=== PATIENT | female | born 1975 | race Caucasian/White ===

== ENCOUNTER 2018-11-15 11:33 | Emergency (ER) | payer OTHER ==
--- NOTE | 2018-11-15 11:32 | EDPHY ---
H & P Time Seen by Provider: 11/15/18 11:33 Constitutional: Initial Vital Signs Temperature (C) 36.4 C 11/15/18 11:33 Heart Rate 63 11/15/18 11:33 Respiratory Rate 20 11/15/18 11:33 Blood Pressure 106/66 11/15/18 11:33 O2 Sat (%) 100 11/15/18 11:33 O2 Delivery Mode Room Air Allergies/Adverse Reactions: No Known Allergies Allergy (Unverified 11/15/18 12:02) Home Medications: Medication Instructions Recorded NK [No Known Home Meds] 11/15/18 Medical Decision Making - Diagnostics Imaging Results: Imaging Impressions Head CT 11/15/18 11:35 Impression: Normal noncontrast CT of the brain. Results called to Dr. Tyrese Villarreal at 11:50 AM at the time of the interpretation. Brain MRI 11/15/18 12:01 Impression: Minimal left frontal and parietal white matter disease; otherwise unremarkable MRI of the brain without contrast. Results called to Dr. Villarreal at 1:00 PM. Imaging: Discussed imaging studies w/ manager call Radiologist, I viewed and interpreted images myself ED Course/Re-evaluation: CHIEF COMPLAINT: Stroke alert HISTORY OF PRESENT ILLNESS: The patient is a 43 y/o female with a history of migraines arriving emergently via EMS as a stroke alert today. The patient reports that starting yesterday she developed neurological symptoms. Today at 09:00, 2.5 hours ago, she was driving and started to feel dizzy and lightheaded. She called EMS due to these symptoms. The patient initially had a negative Rosie Stroke Scale. However , she developed slurred speech, lost her peripheral vision, and had some drooping on her right side. She also states that her left hand and leg are numb. No fever, headache, body aches, lightheadedness, chest pain, heart palpitations, shortness of breath, cough, abdominal pain, urinary or bowel complaints REVIEW OF SYSTEMS: A comprehensive 10 system review of systems is otherwise negative aside from elements mentioned in the history of present illness and medical decision making. PHYSICAL EXAM: HR, BP, O2 Sat, RR. Temp noted General Appearance: Alert, well hydrated, appropriate, and non-toxic appearing. Head: Atraumatic without scalp tenderness or obvious injury Eyes: Pupils equal, round, reactive to light and accommodation, EOMI, no trauma , no injection. Ears: Clear bilaterally, no perforation, normal landmarks Nose: Atraumatic, no rhinorrhea, clear. Throat: There is no erythema or exudates, no lesions, normal tonsils, mucus membranes moist. Neck: Supple, 2+ carotid upstroke, nontender, no lymphadenopathy. Respiratory: No retractions, no distress, no wheezes, and no accessory muscle use. Lungs are clear to auscultation bilaterally. Cardiovascular: Regular rate and rhythm, no murmurs, rubs, or gallops. Bilateral carotid, radial, dorsalis pedis, and posterior tibial pulses intact. Good capillary refill all extremities. Gastrointestinal: Abdomen is soft, nontender, non-distended, no masses, no rebound, no guarding, no peritoneal signs. Musculoskeletal: Normal active ROM of all extremities, atraumatic. Neurological: Patient is able to move all extremities, but states that she feels weak on her left side. She also has some slurred speech, but is saying the words that she wants and understand me. Alert and interactive. The patient has normal DTRs and non-focal cranial nerves, motor, sensory, and cerebellar exam. Skin: No rashes, good turgor, no nodules on palpation. Past medical history: Migraines Past surgical history: Hysterectomy Family history: Denies Social history: Lives in [place], single, employed DIAGNOSTICS/PROCEDURES/CRITICAL CARE TIME: Head CT: No acute findings. Brain MRI: No acute findings. DIFFERENTIAL DIAGNOSIS: The differential diagnosis for the patient's altered mental status included but was not limited to atypical migraine, hypoglycemia, infectious process, electrolyte abnormality, head injury, neurologic process, anemia, cardiac process, and intoxicants. MEDICAL DECISION MAKIN: I met EMS upon arrival. The patient is a 43 y/o female with a history of migraines arriving emergently via EMS as a stroke alert today. The patient reports that starting yesterday she developed neurological symptoms. Today at 09:00, 2.5 hours ago, she was driving and started to feel dizzy and lightheaded. She then developed slurred speech, lost her peripheral vision, and had some drooping on her right side. On exam she is able to move all extremities, but states that she feels weak on her left side. She also has some slurred speech, but is saying the words that she wants and understand me. Head CT ordered. Patient will go directly to CT. 1155: I spoke with Dr. Whitehead, radiologist, regarding patient's head CT. There are no acute findings. 1159: Reassessed patient. [facility] is assessing the patient via the stroke robot. The neurologist and I agree that the patient is most likely having an atypical migraine. She is not in the TPA window as her symptoms started yesterday. Brain MRI ordered and cocktail migraine administered. 1305: I spoke with Dr. Whitehead, radiologist, regarding patient's brain MRI. There are no acute findings. 1310: Reassessed patient and discussed imaging findings. I have advised her to follow up with a neurologist. Return precautions provided; patient is comfortable with this plan. - Data Points Laboratory Results: Laboratory Results 11/15/18 11:40 11/15/18 11:40 11/15/18 11/15/18 11/15/18 11:40 11:40 11:40 WBC 7.73 10^3/uL 10^3/uL (3.80-9.50) RBC 4.56 10^6/uL 10^6/uL (4.18-5.33) Hgb 15.1 g/dL g/dL (12.6-16.3) POC Hgb Hct 42.3 % % (38.0-47.0) POC Hct MCV 92.8 fL fL (81.5-99.8) MCH 33.1 pg pg (27.9-34.1) MCHC 35.7 g/dL g/dL (32.4-36.7) RDW 12.6 % % (11.5-15.2) Plt Count 280 10^3/uL 10^3/uL (150-400) MPV 9.9 fL fL (8.7-11.7) Neut % (Auto) 53.7 % % (39.3-74.2) Lymph % (Auto) 40.4 % % (15.0-45.0) Esmeralda % (Auto) 4.7 % % (4.5-13.0) Eos % (Auto) 0.8 % % (0.6-7.6) Baso % (Auto) 0.1 % L % (0.3-1.7) Nucleat RBC Rel Count 0.0 % % (0.0-0.2) Absolute Neuts (auto) 4.16 10^3/uL 10^3/uL (1.70-6.50) Absolute Lymphs (auto) 3.12 10^3/uL H 10^3/uL (1.00-3.00) Absolute Monos (auto) 0.36 10^3/uL 10^3/uL (0.30-0.80) Absolute Eos (auto) 0.06 10^3/uL 10^3/uL (0.03-0.40) Absolute Basos (auto) 0.01 10^3/uL L 10^3/uL (0.02-0.10) Absolute Nucleated RBC 0.00 10^3/uL 10^3/uL (0-0.01) Immature Gran % 0.3 % % (0.0-1.1) Immature Gran # 0.02 10^3/uL 10^3/uL (0.00-0.10) PT 13.0 SEC SEC (12.0-15.0) INR 1.02 (0.83-1.16) APTT 30.6 SEC SEC (23.0-38.0) POC Sodium Sodium 139 mEq/L mEq/L (135-145) POC Potassium Potassium 4.1 mEq/L mEq/L (3.5-5.2) POC Chloride Chloride 104 mEq/L mEq/L (97-110) Carbon Dioxide 22 mEq/l mEq/l (22-31) POC Total CO2 Anion Gap 13 mEq/L mEq/L (6-14) POC BUN BUN 6 mg/dL L mg/dL (7-23) Creatinine 0.6 mg/dL mg/dL (0.6-1.0) POC Creatinine Estimated GFR > 60 Glucose 102 mg/dL H mg/dL (70-100) POC Glucose Calcium 9.9 mg/dL mg/dL (8.5-10.4) 11/15/18 11:38 WBC RBC Hgb POC Hgb 15.0 gm/dL gm/dL (12.6-16.3) Hct POC Hct 44 % % (38-47) MCV MCH MCHC RDW Plt Count MPV Neut % (Auto) Lymph % (Auto) Esmeralda % (Auto) Eos % (Auto) Baso % (Auto) Nucleat RBC Rel Count Absolute Neuts (auto) Absolute Lymphs (auto) Absolute Monos (auto) Absolute Eos (auto) Absolute Basos (auto) Absolute Nucleated RBC Immature Gran % Immature Gran # PT INR APTT POC Sodium 142 mEq/L mEq/L (135-145) Sodium POC Potassium 3.7 mEq/L mEq/L (3.3-5.0) Potassium POC Chloride 103 mEq/L mEq/L (97-110) Chloride Carbon Dioxide POC Total CO2 22 mEq/L mEq/L (22-31) Anion Gap POC BUN 5 mg/dL L mg/dL (7-23) BUN Creatinine POC Creatinine 0.6 mg/dL mg/dL (0.6-1.0) Estimated GFR Glucose POC Glucose 109 mg/dL H mg/dL (70-100) Calcium Medications Given: Discontinued Medications Diphenhydramine HCl (Benadryl Injection) 25 mg IVP EDNOW ONE Stop: 11/15/18 12:03 Last Admin: 11/15/18 12:10 Dose: 25 mg Ketorolac Tromethamine (Toradol) 30 mg IVP EDNOW ONE Stop: 11/15/18 12:03 Last Admin: 11/15/18 12:13 Dose: 30 mg Methylprednisolone Sodium Succinate (Solu-Medrol) 125 mg IVP EDNOW ONE Stop: 11/15/18 12:03 Last Admin: 11/15/18 12:13 Dose: 125 mg Metoclopramide HCl (Reglan Injection) 10 mg IVP EDNOW ONE Stop: 11/15/18 12:03 Last Admin: 11/15/18 12:12 Dose: 10 mg Point of Care Test Results: Chemistry 11/15/18 11:38 POC Sodium 142 mEq/L mEq/L (135-145) POC Potassium 3.7 mEq/L mEq/L (3.3-5.0) POC Chloride 103 mEq/L mEq/L (97-110) POC Total CO2 22 mEq/L mEq/L (22-31) POC BUN 5 mg/dL L mg/dL (7-23) POC Creatinine 0.6 mg/dL mg/dL (0.6-1.0) POC Glucose 109 mg/dL H mg/dL (70-100) ISTAT H&H 04/06/19 11:38 POC Hgb 15.0 gm/dL gm/dL (12.6-16.3) POC Hct 44 % % (38-47) Departure - Departure Disposition: Home, Routine, Self-Care Clinical Impression: Migraine Qualifiers: Migraine type: other Status migrainosus presence: without status migrainosus Intractability: intractable Qualified Code(s): G43.819 - Other migraine, intractable, without status migrainosus Condition: Good Instructions: Migraine Headache (ED) Additional Instructions: 1. Follow-up with your primary care physician or neurologist within 72 hours. 2. Return to the emergency department immediately for recurrence of headache, nausea, vomiting, numbness, weakness, neck pain, fever or other concerns. Referrals: Jose Oshea MD [Medical Doctor] - As per Instructions Report Scribed for: Tyrese Villarreal Report Scribed by: Lanette Bourne Date of Report: 11/15/18 Time of Report: 12:58
[2018-11-15] MEDS ORDERED: METOCLOPRAMIDE 10 MG/2 ML VIAL IVP ONE (12:02)
[2018-11-15] MEDS ORDERED: KETOROLAC 30 MG/1 ML SDV IVP ONE (12:02)
[2018-11-15] MEDS ORDERED: methylPREDNISolone SOD SUCC 125 MG/2 ML VIAL IVP ONE (12:02)
[2018-11-15 12:12] LABS: PLATELET COUNT 280 10^3/uL (150-400)
[2018-11-15 12:51] LABS: INR 1.02 (0.83-1.16)
[2018-11-15 13:21] VITALS: BP 113/73
--- NOTE | 2018-11-15 17:31 | PDCONSULT ---
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 Symptoms started yesterday morning. Then when patient got to work at 930am she developed numbness in her left hand. This morning patient nearly fell and someone at work had to catch her. Then her speech became slow. [facility]-- Past Medical History: Migraine Exam Vitals: vital signs reviewed SBP: 106 DBP: 66 NIHSS Time (): 11/15/2018 11:58 LOC 1a: 0 = Alert; keenly responsive LOC 1b: 0 = Answers both questions correctly LOC Commands: 0 = Performs both tasks correctly Best Gaze: 0 = Normal Visual: 0 = No visual loss Facial Palsy: 0 = Normal symmetrical movements Motor Arm L: 1 = Drift; limb holds 90 (or 45) degrees, but drifts down before full 10 seconds; does not hit bed or other support Motor Arm R: 0 = No drift; limb holds 90 (or 45) degrees for full 10 seconds Motor Leg L: 1 = Drift; leg falls by the end of the 5-second period but does not hit bed Motor Leg R: 0 = No drift; leg holds 30-degree position for full 5 seconds Limb Ataxia: 0 = Absent Sensory: 1 = [id number] sensory loss; patient feels pinprick is less sharp or is dull on the affected side, but patient is aware of being touched Best Language: 1 = [id number] aphasia; some obvious loss of fluency or facility of comprehension Dysarthria: 0 = Normal Extinction + Inattention: 0 = No abnormality NIHSS: [address]: no bleed CTA Head: no large vessel occlusion Assessment Impression: Complex Migraine Plan Lytic/Intervention: NOT IV or IA candidate, low suspicion for stroke tPA Exclusion: > 4.5 hr Imaging: MRI brain without Other: I have discussed my recommendations with the referring provider Additional Recommendations: further w/u depending on results of MRI brain Disposition: observation Logistics Telemedicine: Interactive 2 way audio and visual telecommunication technology was utilized during this visit. Provider Location: [place] Patient Location: [facility] electronically signed by Dr. Morrison on: Malik, 2018-11-15 17:27
== END 2018-11-15 13:41 | disposition home or self-care (01) ==
LOC: EDBD → EDUNIT#
DX: G43.819 Other migraine, intractable, without status migrainosus (principal)
CPT/HCPCS: 70551-PN; 82435-PO; 82565-PO; 82947-PO; 84132-PO; 84295-PO; 84520-PO; 85014-ER; 96374; J1200; J1885; J2765; J2930